=== PATIENT | male | born 1975 | race Caucasian/White ===

== ENCOUNTER 2020-07-06 09:15 | Emergency (ER) | payer BC ==
--- NOTE | 2020-07-06 09:32 | EDM.PDOC ---
ED HPI GENERAL MEDICAL PROBLEM - General Chief Complaint: Head Injury Stated Complaint: FALL WITH LOC Time Seen by Provider: 07/06/20 09:32 Source of Information: Reports: Patient, Family History Limitations: Reports: No Limitations - History of Present Illness INITIAL COMMENTS - FREE TEXT/NARRATIVE: Tee, 44-year-old male, accompanied by his friend presents to the emergency department post fall with 2 episodes of loss of consciousness. They were fishing in the lumbar area where he slipped on the ice going backwards striking the occipital region. He states it was a significant fall and remembers the occurrence. Mild headache with dizziness was noted but no initial loss of consciousness. Roughly 35 minutes after the event he was repositionings himself in the fish house when he experienced syncope. This was brief lasting a minute, with resolution being what was deemed appropriate. Then approximately 15 to 30 minutes later he once again with positioning changes experienced a brief loss of consciousness. The one event was witnessed by his friend to which she was fishing with that accompanied him here to the emergency department. He denies any Covid exposure risks. He denies any other injuries or complaints. States his medical history is well maintained with his antihypertensives. 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 [Unable to Verify Home Med List] 07/06/20 [History] Past Medical History HEENT History: Reports: None Cardiovascular History: Reports: Hypertension Respiratory History: Reports: None Social & Family History - Family History Family Medical History: No Pertinent Family History - Tobacco Use Tobacco Use Status *Q: Never Tobacco User - Caffeine Use Caffeine Use: Reports: Coffee - Alcohol Use Alcohol Use History: Yes Alcohol Use in Last Twelve Months: Yes Alcohol Use Frequency: Socially - Living Situation & Occupation Living situation: Reports: , with Spouse ED ROS GENERAL - Review of Systems Review Of Systems: Comprehensive ROS is negative, except as noted in HPI. ED EXAM, HEAD INJURY - Physical Exam Exam: See Below Text/Narrative:: Alert, oriented, in no acute distress. PERRLA no icterus no injection nondilated funduscopy is benign. Extraocular motion is intact. HEENT is negative discharge or deformity, there is tenderness in the occipital region. With slight hematoma. Neck is soft supple there is no rigidity. No tenderness to the shoulder girdles motion of the arms is intact. There is clear breath sounds throughout. Cardiac is regular I do not appreciate murmur. No deficits to examination or motion are noted. Headache is minimal, with no noted deficits. Feels chilled at times which would accompany the ice fishing and is provided with warm blankets and claims he is comfortable thereafter. Course - Vital Signs Last Recorded V/S: Last Vital Signs Temp 96.2 F L 07/06/20 09:28 Pulse 63 07/06/20 09:28 Resp 16 07/06/20 09:28 BP 119/73 07/06/20 09:28 Pulse Ox 97 07/06/20 09:28 - Orders/Labs/Meds Orders: Active Orders 24 hr Category Date Time Status Head wo Cont [CT] Stat Exams 07/06/20 09:25 Ordered - Re-Assessments/Exams Free Text/Narrative Re-Assessment/Exam: 07/06/20 10:15 Remains appropriate, resting with warm blankets awaiting the CT report. Is totally appropriate informed of the CT results and is prepared to be dis charged home with his friend doing the driving. Departure - Departure Time of Disposition: 10:14 Disposition: Home, Self-Care 01 Condition: Good Clinical Impression: Concussion with less than 1 hour loss of consciousness - Discharge Information *PRESCRIPTION DRUG MONITORING PROGRAM REVIEWED*: Not Applicable *COPY OF PRESCRIPTION DRUG MONITORING REPORT IN PATIENT SILVINA: Not Applicable Instructions: Post-Concussion Syndrome, [id number], Concussion, Adult, [id number] Forms: ED Department Discharge Additional Instructions: You need to rest in a quiet cool environment avoiding bright lights and loud noises. Concussion syndrome can last for hours to days, 2 months old depending on the nature of the injury and how you treat the recovery. Avoidance of computers and smart phones for the next 24 hours is also recommended. You may take your regular medications as scheduled. Tylenol or Motrin may be taken for body aches and headache. You may go to sleep but you should be checked for your appropriate response 1 time before noon today. After 12 PM you should be checked on a 2-hour basis twice for your neurologic response and appropriateness. Then you may be checked and observed 1 more time prior to retiring to bed for the evening. Follow-up with your regular clinic as needed or if emergency concerns should occur present to the nearest emergency facility/hospital available. Sepsis Event Note (ED) - Focused Exam Vital Signs: Vital Signs Temp Pulse Resp BP Pulse Ox 07/06/20 09:28 96.2 F L 63 16 119/73 97 - Problem List & Annotations (1) Fall due to ice or snow SNOMED Code(s): 307579336 Code(s): W00.9XXA - UNSPECIFIED FALL DUE TO ICE AND SNOW, INITIAL ENCOUNTER Status: Acute Priority: High Qualifiers: Encounter type: initial encounter Qualified Code(s): W00.9XXA - Unspecified fall due to ice and snow, initial encounter (2) Concussion SNOMED Code(s): 790153464 Code(s): S06.0X9A - CONCUSSION W LOSS OF CONSCIOUSNESS OF UNSP DURATION, INIT Status: Acute Priority: High Qualifiers: Encounter type: initial encounter Loss of consciousness presence/duration: with LOC of 30 min or less Qualified Code(s): S06.0X1A - Concussion with loss of consciousness of 30 minutes or less, initial encounter - Problem List Review Problem List Initiated/Reviewed/Updated: Yes - My Orders Last 24 Hours: My Active Orders 07/06/20 09:25 Head wo Cont [CT] Stat - Assessment/Plan Last 24 Hours: My Active Orders 07/06/20 09:25 Head wo Cont [CT] Stat Plan: You need to rest in a quiet cool environment avoiding bright lights and loud noises. Concussion syndrome can last for hours to days, 2 months old depending on the nature of the injury and how you treat the recovery. Avoidance of computers and smart phones for the next 24 hours is also recommended. You may take your regular medications as scheduled. Tylenol or Motrin may be taken for body aches and headache. You may go to sleep but you should be checked for your appropriate response 1 time before noon today. After 12 PM you should be checked on a 2-hour basis twice for your neurologic response and appropriateness. Then you may be checked and observed 1 more time prior to retiring to bed for the evening. Follow-up with your regular clinic as needed or if emergency concerns should occur present to the nearest emergency facility/hospital available.
--- NOTE | 2020-07-06 10:03 | CT ---
[id number] CT/CT Head WO IV EXAM: CT Head WO IV CLINICAL DATA: TRAUMA COMPARISON: NO PREVIOUS SIMILAR EXAM IS AVAILABLE FOR COMPARISON. FINDINGS: There is no mass or mass effect. There is no hemorrhage or hydrocephalus. There are no extra-axial fluid collections. There are no sites of abnormal attenuation. IMPRESSION: NO PLAIN CT EVIDENCE OF ACUTE INTRACRANIAL PROCESS. Thomas Esquivel MD 07/06/20 1002 Thank you for allowing us to participate in the care of your patient.
== END 2020-07-06 10:25 | disposition home or self-care (01) ==
LOC: KA.ED 09:15
DX: S06.0X9A Concussion with loss of consciousness of unspecified duration, initial encounter (principal); I10 Essential (primary) hypertension; W00.0XXA Fall on same level due to ice and snow, initial encounter
CPT/HCPCS: 70450; 99284-25